=== PATIENT | male | born 1960 ===

== ENCOUNTER 2018-09-10 06:12 | Inpatient (IN) ==
[~2018-09-10 06:12] MED LIST: Bacitracin 50,000 UNIT, Polymyxin B Sulfate 500,000 UNIT, Sodium Chloride IRRigation 1,... IR ONE
[2018-09-10] MEDS ORDERED: Clindamycin 900 MG/50 ML 900 MG/50 ML IV.SOLN IVPB ONE (06:29)
[2018-09-10] MEDS ORDERED: Ringers Solution, Lactated 1,000 ML IVC SCH (06:30)
[2018-09-10] MEDS ORDERED: *HR* FentaNYL (PF) 100 MCG/2 ML VIAL ONE (06:58)
[2018-09-10] MEDS ORDERED: *HR* Propofol 200 MG/20 ML VIAL IVP ONE ×2 (06:58→11:36)
[2018-09-10] MEDS ORDERED: *HR* Midazolam HCl 2 MG/2 ML VIAL ONE (06:58)
[2018-09-10] MEDS ORDERED: *HR* Remifentanil 1 MG VIAL IVP ONE (06:59)
[2018-09-10] MEDS ORDERED: *HR* Succinylcholine 200 MG/10 ML VIAL IVP ONE (07:02)
[2018-09-10] MEDS ORDERED: Lidocaine -MPF 4% 5 ML AMPUL ONE (07:02)
[2018-09-10] MEDS ORDERED: Lidocaine -MPF 2% 2 ML VIAL ONE (07:02)
[2018-09-10] MEDS ORDERED: Ondansetron 4 MG/2 ML VIAL ONE (07:02)
[2018-09-10] MEDS ORDERED: *HR* Phenylephrine 10 MG/ML VIAL ONE (07:06)
--- NOTE | 2018-09-10 07:45 | History & Physical Report ---
Date of Encounter: 09/10/18 Time of Encounter: 07:44 24 Hour HP Update - Instructions Instructions: If the History and Physical is less than 30 days old and was completed prior to A.M. admission and or procedure and has NOT been updated on calendar day of procedure please complete this update prior to performing procedure. - Update Patient reports changes in Medical Condition: No Changes in examination, assessment, or condition: No Changes in Medication: No Preop tests/diagnostics Reviewed: Yes Pre-Op MRSA Screen: Negative Surgery Remains Indicated: Yes Consent for Planned Operative Procedure(s) Verified: Yes - Pre-Operative Checklist Preoperative Checklist Indicated: No Prophylactic Antibiotic Ordered: Yes Home Medications Include Beta Dong: No Beta Dong Taken Today (Day of Surgery): No Beta Dong Taken Yesterday (Day Prior to Surgery): No Is VTE Prophylaxis Indicated?: Yes
--- NOTE | 2018-09-10 07:59 | Anesthesia Evaluation PreOp ---
Date of Encounter: 09/10/18 Time of Encounter: 07:57 - Past History Planned Operation: PLIF L3-L5 Cardiac History: HTN Pulmonary History: Denies Any Significant HX INSOLE CHANNELER History: Denies Any Significant HX Other Medical History: Other (CML S/P leukemia, anxiety) Anesthesia History: No Prior Anesthetic Complications, Past Anesthesia Alcohol Use: occasionally Drug use: none Medications and Allergies DULoxetine [Cymbalta] 60 mg PO DAILY 05/01/17 [History] Brexpiprazole [Rexulti] 2 mg PO DAILY 12/19/17 [History] Dasatinib [Sprycel] 80 mg PO DAILY #90 tablet 06/26/18 [Rx] Lisinopril-HCTZ 20-12.5 [Prinzide 20-12.5] 1 tab PO QAM 09/10/18 [History] Loratadine/Pseudoephedrine [[facility] Allergy Relief-D12 Tablet] 1 tab PO DAILY PRN 09/10/18 [History] Meloxicam 15 mg PO QAM 09/10/18 [History] Oxycodone HCl/Acetaminophen [Percocet 7.5-325 mg Tablet] 1 tab PO Q6H PRN 09/10/18 [History] clonazePAM [Clonazepam] 0.5 mg PO BID 09/10/18 [History] Allergy/AdvReac Type Severity Reaction Status Date / Time Penicillins [PCN] AdvReac Rash Verified 09/10/18 07:24 - Meds/Allergy Pre-op Review Medications Reviewed: Yes Allergies Reviewed: Yes Beta Blockers on Current Med List: No Anesthesia Results - Labs Laboratory Tests 09/08/18 09/08/18 09/08/18 14:52 14:52 14:52 WBC 3.9 L Hgb 12.6 L Hct 38.5 Plt Count 165 PT 11.1 INR 1.0 APTT 35.4 Sodium 139 Potassium 4.0 BUN 22 H Creatinine 1.23 - Imaging EKG: report reviewed (12/19/2017 SINUS RHYTHM POSSIBLE LEFT ATRIAL ENLARGEMENT) Additional studies: 12/25/2017 Echo Impressions: LVEF 60-65%. Normal LV chamber size, wall thickness and function. Mild left ventricular diastolic dysfunction. Normal right ventricular structure and function. Mild tricuspid regurgitation. Mild pulmonary hypertension. Anesthesia Exam O2 Sat Height 1.6 m Height 1.6 m Weight 70.76 kg Weight 70.76 kg O2 Sat by Pulse Oximetry 94 Vital Signs Temp Pulse Resp BP Pulse Ox 98.8 F 99 18 118/68 94 09/10/18 06:47 09/10/18 06:47 09/10/18 06:47 09/10/18 06:47 09/10/18 06:47 Height: 5'3'' Weight: 156 lbs NPO (# of Hours): 8 Pain Scale: 0 Pain Scale Used: Numeric (1 - 10) - HEENT Pupil (Motor): EOMI Mallampati: III Teeth: Normal Oral Opening: Greater than 3 - INSOLE CHANNELER LOC: Oriented INSOLE CHANNELER Motor: Normal RUE, Normal LUE, Normal RLE, Normal LLE, Normal Face INSOLE CHANNELER Sensory: Normal: RUE, LUE, RLE, LLE, Face - Cardiac Rhythm: Regular Murmur: None - Pulmonary Breath Sounds: bilateral Rhonchi Respiratory Effort: Symmetrical Anesthesia Assess/Plan ASA Score: 3 Level of consciousness: Cooperative, Oriented, Tranquil Anesthetic Plan: General Monitoring Plan: Standard Monitors Recovery Plan: PACU
[2018-09-10] MEDS ORDERED: Acetaminophen IV 1,000 MG/100 ML INFUS..BTL ONE (08:09)
[2018-09-10] MEDS ORDERED: Albuterol 2.5 MG/3 ML NEBULIZER ONE (08:10)
[2018-09-10] MEDS ORDERED: Dexamethasone 4 MG/ML VIAL ONE (09:17)
[2018-09-10] MEDS ORDERED: *HR* Rocuronium Bromide 50 MG/5 ML VIAL ONE (09:31)
[2018-09-10] MEDS ORDERED: *HR* HYDROMORPHONE 2 MG/ML VIAL ONE (11:19)
--- NOTE | 2018-09-10 12:52 | Orthopedic Operative Note ---
Date of procedure: 09/10/18 Pre-op diagnosis: Spondylolisthesis, lumbar stenosis, lumbar radiculopathy Post-op diagnosis: same Operation/Findings: Posterior lumbar interbody fusion L3-L5: The patient successfully underwent general endotracheal anesthesia. The patient was given antibiotics prior to the start of the procedure. Compression boots and stockings were used for deep vein thrombosis prophylaxis. A Sawyer catheter was placed. Leads for neuro monitoring were placed on the upper and lower extremities. This included the cranium. The neuro monitoring personnel confirmed there were satisfactory readings prior to the start of the procedure. The patient was turned prone on the Elias table. The back was prepped and draped in the usual sterile fashion. An incision was was marked and centered over the involved L3-L5 levels in the mid line. The incision was deepened through the lumbar fascia. Bovie cautery and Young elevators were used to reflect the paraspinal musculature at the lateral extent of the transverse processes of the involved L3-L5 levels. Linda clamps were placed over the L4 and L5 spinous processes. An intraoperative lateral fluorograph was obtained. A conversation was held between the surgeon and radiologist and both confirmed we had the correct operative levels. We then placed pedicle screws in standard fashion with the aid of fluoroscopy and anatomic landmarks. Briefly a starter awl was used. A gearshift was subsequently used to enter the facilities flight check pilot hole via a transpedicular route into the vertebral body. The facilities flight check pilot hole was tapped with an undersized instrument, and subsequently six 6.5 x 45 mm pedicle screws were placed bilaterally at the indicated L3, L4, and L5 levels. The screws were tested with the aid of the neurologic monitoring staff via pedicle screw stimulation. All reading suggested there was no significant cortical wall breech. The screws were also evaluated fluoro- graphically and appeared to be in satisfactory position. We then turned our attention to the decompression portion of the procedure. We removed the supraspinous and interspinous ligaments and subsequently the insertion of the ligamentum flavum on the undersurface of the proximal L4 lamina was dislodged with a curette. We then removed the ligamentum flavum as well as undercut the L4-L5 facets at this L4-L5 level to decompress the lateral recesses. We also performed a laminectomy. After the decompression which was over and above that which was required to place the interbody graft, the foramen and traversing roots at this level were found to be free and patent. We also took part of the medial facets in order to aid in the decompression. We moved proximally to the L3-4 level and again removed supraspinous and interspinous ligaments, removed hypertrophied ligamentum flavum, and undercut the L3-4 facets and did partial medial facetectomies. We also did a partial L3 laminectomy. We then protected the neural elements including the thecal sac and traversing nerve root on the right at L4-5 with a dural retractor. We made an annulotomy into the L4-5 disc space and then removed entire disc material using Pituitary instruments. We trialed various size grafts after the endplates were prepared for graft insertion. A 10 x 26 enter body graft fit well within the L4-L5 disc space. We obtained some bone from the right posterior superior iliac spine through us a separate incision and combined with this with the bone which we had saved from the laminectomy portion of the procedure. This autograft bone was first placed in the anterior portion of the L4-L5 disc space and additional bone was placed within the interbody graft spacer. We then placed the interbody graft spacer obliquely across the L4-L5 disc space towards the midline while protecting the neural elements with a root retractor. When the graft was found to be in satisfactory position the bowling ball engraver was removed. We then performed an identical interbody graft placement procedure at L3-4. This included protecting the neural elements with a dural retractor, making annulotomy into the L3-4 disc space, removing entire disc material, prepared the endplates for graft insertion. Trialing and subsequently placing a 10 x 26 mm interbody graft spacer obliquely across the L3-4 disc space that was packed with autograft bone. We then copiously irrigated the wound. We then decorticated the L3, L4, and L5 transverse processes as well as the L3-4 and L4-5 facet joints of the involved L3-L5 levels to aid in the posterolateral fusion. We placed autograft bone in the lateral gutters over these regions. We then placed rods within the screw h ruddy of the involved L3-L5 levels and first locked the distal screws and then subsequently locked the proximal screws so as to improve and reduce the spondylolisthesis previously seen. We then closed the wound in layers with 1 Vicryl for the fascia, 2-0 Vicryl. Subcutaneous tissue, and Dermabond was used for skin closure. Sterile dressings were placed over the wound. The patient was turned supine on a hospital bed and extubated. All sponge instruments and needle counts were correct at the end of the procedure. The patient tolerated the procedure well without complications. Anesthesia: GETA Surgeon: Deejay Loernzana Jr Was there an cafeteria assistant present: No Estimated blood loss (cc): 200 Specimen: None Condition: stable Disposition: PACU
[2018-09-10] MEDS ORDERED: *HR* OxyCODONE Immed Rel 5 MG TABLET PO ONE (13:12)
--- NOTE | 2018-09-10 13:34 | Anesthesia Evaluation Post Op ---
Date of Encounter: 09/10/18 Time of Encounter: 13:34 - Vital Signs Vital Signs: Vital Signs/O2 Sat, Most Current Temp Pulse Resp BP Pulse Ox 99.6 F 110 18 102/63 96 09/10/18 12:50 09/10/18 13:30 09/10/18 13:30 09/10/18 13:30 09/10/18 13:30 - Lungs Lungs: Clear Ascult./Percussion - Airway Airway: Non-obstructed - Cardiovascular Regular Rate - Mental Status Mental Status: Alert & Oriented, Answers Appropriately - Pain Pain Scale: 5 Pain Scale used: Numeric (1 - 10) - Nausea Vomiting Nausea Vomiting: Not Present - Hydration Hydration: NPO, Sawyer catheter - Discharge PostOp Status: Transfer Patient to floor
[2018-09-10] MEDS ORDERED: Ondansetron 4 MG/2 ML VIAL IVP PRN (13:57)
[2018-09-10] MEDS ORDERED: Loratadine/Pseudophed (12 HR) 1 EACH TABLET PO PRN (13:57)
[2018-09-10] MEDS ORDERED: Naloxone 0.4 MG/ML INJ IVP PRN (13:57)
[2018-09-10] MEDS: *HR* HYDROcodone/Acet 5/325 mg TABLET PO PRN (15:24)
[2018-09-10] MEDS: Ringers Solution, Lactated 1,000 ML IVC SCH (16:43)
[2018-09-10] MEDS: *HR* OxyCODONE Immed Rel 5 MG TABLET PO PRN ×2 (17:52→23:27)
[2018-09-10] MEDS: Clindamycin 600 MG/50 ML 600 MG/50 ML IV.SOLN IVPB SCH (23:28)
[2018-09-10] MEDS: clonazePAM 0.5 MG TABLET PO SCH (23:28)
[2018-09-11] MEDS: Benzonatate 100 MG CAPSULE PO PRN ×2 (02:45→22:43)
[2018-09-11] MEDS: Albuterol 2.5 MG/3 ML NEBULIZER IH PRN ×2 (03:27→20:38)
[2018-09-11] MEDS: *HR* OxyCODONE Immed Rel 5 MG TABLET PO PRN ×4 (03:54→17:55)
[2018-09-11] MEDS: Acetaminophen 325 MG TABLET PO PRN ×2 (03:54→15:20)
[2018-09-11] MEDS: Ringers Solution, Lactated 1,000 ML IVC SCH (05:52)
--- NOTE | 2018-09-11 08:41 | Orthopedics Progress Note ---
Date of Encounter: 09/11/18 Time of Encounter: 10:55 - Assessment and Plan (1) Spondylisthesis Current Visit: Yes Status: Chronic Qualifiers: Spinal region: unspecified Qualified Code(s): M43.10 - Spondylolisthesis, site unspecified (2) Lumbar stenosis Current Visit: Yes Status: Chronic Qualifiers: Neurogenic claudication status: unspecified Qualified Code(s): M48.061 - Spinal stenosis, lumbar region without neurogenic claudication (3) Lumbar radiculopathy Current Visit: Yes Status: Chronic (4) Status post lumbar spinal fusion Current Visit: Yes Status: Acute (5) Fever Current Visit: Yes Status: Acute Qualifiers: Fever type: unspecified Qualified Code(s): R50.9 - Fever, unspecified (6) Tachycardia Current Visit: Yes Status: Acute (7) Cough Current Visit: Yes Status: Acute Subjective Principal diagnosis: s/p PLIF Interval history: POD#1 Posterior lumbar interbody fusion L3-L5 [Spondylolisthesis, lumbar stenosis, lumbar radiculopathy] 09/10/18 The patient is complains of cough. States it has been going on for a little while however has now become much worse and feels unwell. Patient febrile with tachycardia. Dressing is clean dry and intact. Neurovascularly intact with regard to bilateral lower extremities. Fires all upper and lower extremity motor groups. Assessment concern for respiratory infection Discussed with Dr. Lorenzana Chest xray, labwork Consult to hospitalist Continue to mobilize with therapy Continue analgesics Continue postoperative care Objective Vital signs: Vital Signs Temp Pulse Resp BP Pulse Ox 09/11/18 08:02 98.5 F 09/11/18 06:25 110 16 119/57 96 09/11/18 05:51 101.1 F H 09/11/18 03:53 116/55 09/11/18 03:28 101.4 F H 119 15 107/54 90 09/11/18 03:27 16 90 09/10/18 22:56 99.8 F H 106 15 124/70 90 09/10/18 19:35 98.8 F 104 15 155/77 94 09/10/18 13:40 108 16 106/65 99 09/10/18 13:30 110 18 102/63 96 09/10/18 13:20 112 18 98/62 94 09/10/18 13:00 120 18 104/63 100 09/10/18 12:50 99.6 F 124 22 115/64 98 Intake and Output 09/10/18 09/11/18 09/11/18 23:59 07:59 15:59 Intake Total 1050 / 1050 Output Total 600 / 1140 600 / 600 Balance -600 / -1090 450 / 450 Intake: IV Fluids 1050 / 1050 Lactated Ringers 1,000 ML @ 100 1000 / 1000 mls/hr IVC .Q10H YURY Rx#: [id number] Cleocin Premix 600 MG/50 ML 600 50 / 50 mg In 50 ml @ 50 mls/hr IVPB Q8HR YURY Rx#:[id number] Output: Catheter 600 / 600 600 / 600 Other: Weight 70.7 kg Patient Weight 09/11/18 23:59 Weight 70.7 kg - Labs CBC & BMP: 09/11/18 11:20 09/11/18 12:27 Consult Discharge Plan - Plan Referrals: Chrsitian Love DO [Primary Care Provider] - Prescriptions: Docusate Sodium [Colace] 100 mg PO BID 5 Days #10 capsule Acetaminophen [Non-Aspirin Extra Strength] 500 mg PO Q6H PRN 7 Days #28 tablet PRN Reason: Mild To Moderate Pain OxyCODONE Immed Rel [Roxicodone 5 MG] 5 mg PO Q6HR PRN 5 Days #20 tablet PRN Reason: Severe Pain
[2018-09-11] MEDS ORDERED: Lisinopril-HCTZ 20-12.5mg TABLET PO SCH (09:00)
[2018-09-11] MEDS ORDERED: (Brexpiprazole [Rexulti] 2 MG) PO SCH (09:00)
[2018-09-11] MEDS: Clindamycin 600 MG/50 ML 600 MG/50 ML IV.SOLN IVPB SCH (09:15)
[2018-09-11] MEDS: clonazePAM 0.5 MG TABLET PO SCH ×2 (09:15→22:36)
[2018-09-11] MEDS: DASATINIB PO SCH (09:16)
[2018-09-11 11:36] LABS: Basophils % 0.3 %; Eosinophils % 0.2 %; Hematocrit 28.6 % (37.5-50.1); Immature Granulocytes % 0.2 % (0-4); Lymphocytes # 0.5 K/mcL (0.6-4.6); Lymphocytes % 9.2 %; Mean Corpuscular HGB Conc 32.2 g/dL (31.6-35.5); Mean Corpuscular Hemoglobin 32.6 pg (28.0-33.3); Mean Corpuscular Volume 101.4 fL (83.0-100.0); Mean Platelet Volume 8.4 fL (9.4-12.4); Monocytes % 17.6 %; Neutrophils # 4.2 K/mcL (1.6-8.9); Platelet Count 139 K/mcL (140-400); Red Blood Count 2.82 M/mcL (4.19-5.50); Red Cell Distribution Width 13.2 % (11.5-14.5); Segmented Neutrophils % 72.5 %; White Blood Count 5.7 K/mcL (4.3-11.1)
[2018-09-11 11:40] LABS: Hemoglobin 9.2 g/dL (12.9-16.9)
--- NOTE | 2018-09-11 12:13 | Internal Medicine Consult Note ---
<Evelyn Acevedo - Last Filed: 09/11/18 14:01> Date of Encounter: 09/11/18 Time of Encounter: 13:33 - Assessment and Plan (1) Sepsis Current Visit: Yes Status: Acute Assessment and plan: fever, tachycardia. source of infection suspected secondary to community acquired pneumonia. CXR reviewed: showed bibasilar atalectasis vs. infiltrate. patient states he had symptoms of productive cough, congestion prior to arriving to hospital for surgery. thus, will treat for community acquired pneumonia and not hospital acquired. Plan: blood cultures x2 urine culture legionella, strep pneumo antigens pending ceftriaxone, azithromycin day 1 1L bolus with maintenance fluids. Qualifiers: Sepsis type: sepsis due to unspecified organism Qualified Code(s): A41.9 - Sepsis, unspecified organism (2) Community acquired pneumonia Current Visit: Yes Status: Acute Assessment and plan: plan as above Qualifiers: Laterality: unspecified laterality Qualified Code(s): J18.9 - Pneumonia, unspecified organism (3) Anemia Current Visit: Yes Status: Acute Assessment and plan: acute blood loss anemia secondary to surgery. MCV 101.4- will get anemia workup. Qualifiers: Anemia type: unspecified type Qualified Code(s): D64.9 - Anemia, unspecified (4) Hypertension Current Visit: Yes Status: Acute Assessment and plan: history of hypertension on lisnopril-HCTZ will hold for now in setting of sepsis/tachycardia. Qualifiers: Hypertension type: essential hypertension Qualified Code(s): I10 - Essential (primary) hypertension (5) Status post lumbar spinal fusion Current Visit: Yes Status: Acute Assessment and plan: s/p lumbar spinal fusion of L3-L5 on 09/[address] Lorenzana. (6) CML (chronic myelocytic leukemia) Current Visit: No Status: Acute Assessment and plan: Hx of CML, follows with Dr. Garcia. (7) DVT prophylaxis Current Visit: Yes Status: Acute Assessment and plan: EPCDs - Time Spent With Patient Total time spent is greater than 50% in coordination of care (as documented) at patient's floor/unit and/or counseling patient: Internal Medicine - CN: HPI - Data of Consult Patient: new to practice Consult date: 09/11/18 Requesting Physician: Deejay Lorenzana Jr MD - Consult Narrative Reason for consult: fever, tachycardia History of present illness: Mr. Coy is a 58 year old male with PMHx of CML, seasonal allergies, hypertension, depression, chronic pain. Patient was admitted yesterday on 09/10 for Posterior lumbar interbody fusion L3-L5. He states that during his admission, he was having upper respiratory symptoms with cough, congestion. After his surgery, patient was having repeated episodes of fever, tachycardia and hospitalist service was consulted for further management. He reports cough with yellow/white sputum production. He reports fevers, chills, and is diaphoretic as well. He denies nausea, vomiting, diarrhea. He denies any new problems today. Past Med Surg Social Fam HX - Past Medical History Medical history: cancer, hypertension Additional medical history: depression anxiety Psychiatric history: anxiety, depression - Past Surgical History Surgical History: herniorrhaphy, orthopedic, other - Social History Smoking Status: Former smoker Alcohol use: occasionally Drug use: none - Family History Mother Hx Family Cancer: Yes (Colon-brain) Father Hx Family Cancer: Yes (Colon) - Constitutional Constitutional: as per HPI - EENT Eyes: as per HPI Ears: as per HPI Nose, mouth and throat: as per HPI - Cardiovascular Cardiovascular ROS IM: as per HPI - Respiratory Respiratory: as per HPI - Gastrointestinal Gastrointestinal: as per HPI - Genitourinary Genitourinary ROS male: as per HPI - Musculoskeletal Musculoskeletal ROS IM: as per HPI - Integumentary Integumentary IM: as per HPI - Neurological Neurological ROS: as per HPI - Psychiatric Psychiatric: as per HPI Internal Medicine - CN: Meds DULoxetine [Cymbalta] 60 mg PO DAILY 05/01/17 [History] Brexpiprazole [Rexulti] 2 mg PO DAILY 12/19/17 [History] Dasatinib [Sprycel] 80 mg PO DAILY #90 tablet 06/26/18 [Rx] Lisinopril-HCTZ 20-12.5 [Prinzide 20-12.5] 1 tab PO QAM 09/10/18 [History] Loratadine/Pseudoephedrine [[facility] Allergy Relief-D12 Tablet] 1 tab PO DAILY PRN 09/10/18 [History] Meloxicam 15 mg PO QAM 09/10/18 [History] Oxycodone HCl/Acetaminophen [Percocet 7.5-325 mg Tablet] 1 tab PO Q6H PRN 09/10/18 [History] clonazePAM [Clonazepam] 0.5 mg PO BID 09/10/18 [History] Acetaminophen [Non-Aspirin Extra Strength] 500 mg PO Q6H PRN 7 Days #28 tablet 09/11/18 [Rx] Docusate Sodium [Colace] 100 mg PO BID 5 Days #10 capsule 09/11/18 [Rx] OxyCODONE Immed Rel [Roxicodone 5 MG] 5 mg PO Q6HR PRN 5 Days #20 tablet 09/11/18 [Rx] Allergy/AdvReac Type Severity Reaction Status Date / Time Penicillins [PCN] AdvReac Rash Verified 09/10/18 07:24 Hospitalist - CN: Exam - Constitutional Vitals: Temp Pulse Resp BP Pulse Ox 99.1 F 85 16 130/75 96 09/11/18 10:27 09/11/18 10:27 09/11/18 10:27 09/11/18 10:27 09/11/18 10:27 Exam: alert and oriented x3, pleasant, no acute distress. diaphoretic. - Head Head exam: Present: atraumatic, normocephalic - ENT ENT exam: Present: mucous membranes moist - Neck Neck exam general surgery: Present: supple, trachea midline - Respiratory Additional comments: rhoncherous breath sounds throughout in all lung mcgee. - Cardiovascular Cardiovascular exam IM: Present: +S1, +S2, tachycardia. Absent: distant heart sounds, gallop, systolic murmur - GI/Abdominal GI/Abdominal exam IM: Present: normal bowel sounds, soft. Absent: distended, tenderness - Extremities Exam Extremities exam IM: Absent: cyanotic, pedal edema - Neurological Exam Neurological exam: Present: alert, oriented X3, no focal deficits - Psychiatric Psychiatric exam: Present: normal affect, normal mood - Skin Skin exam IM: Absent: abrasion, cyanosis, diaphoretic Internal Medicine - CN: Reslt - Labs CBC & Chem 7: 09/11/18 11:20 09/11/18 12:27 Labs: Short CBC 09/11/18 Range/Units 11:20 WBC 5.7 (4.3-11.1) K/mcL Hgb 9.2 L D (12.9-16.9) g/dL Hct 28.6 L (37.5-50.1) % Plt Count 139 L (140-400) K/mcL Neutrophils # 4.2 (1.6-8.9) K/mcL - Impressions Impressions Fluoroscopy 09/10/18 08:55 IMPRESSION: Intraprocedural fluoroscopic spot images as above. See separate procedure report for more information. Postoperative lateral radiograph of the lumbar spine demonstrates posterior fusion changes from L3-L5, with laminectomies. D/ / 09/10/2018 12:51:57 Darryl Gunn MD / kerry Interpreting Provider: Darryl Gunn MD Lumbar Spine X-Ray 09/10/18 08:55 IMPRESSION: Intraprocedural fluoroscopic spot images as above. See separate procedure report for more information. Postoperative lateral radiograph of the lumbar spine demonstrates posterior fusion changes from L3-L5, with laminectomies. D/ / 09/10/2018 12:51:57 Darryl Gunn MD / kerry Interpreting Provider: Darryl Gunn MD Lumbar Spine X-Ray 09/10/18 08:55 IMPRESSION: Intraprocedural fluoroscopic spot images as above. See separate procedure report for more information. Postoperative lateral radiograph of the lumbar spine demonstrates posterior fusion changes from L3-L5, with laminectomies. D/ / 09/10/2018 12:51:57 Darryl Gunn MD / kerry Interpreting Provider: Darryl Gunn MD Chest X-Ray 09/11/18 08:26 IMPRESSION: Bibasilar atelectasis or infiltrate. D/ / Zina Busch MD / Zina Busch MD Interpreting Provider: Zina Busch MD Consult Discharge Plan - Plan Referrals: Christian Love DO [Primary Care Provider] - Prescriptions: Docusate Sodium [Colace] 100 mg PO BID 5 Days #10 capsule Acetaminophen [Non-Aspirin Extra Strength] 500 mg PO Q6H PRN 7 Days #28 tablet PRN Reason: Mild To Moderate Pain OxyCODONE Immed Rel [Roxicodone 5 MG] 5 mg PO Q6HR PRN 5 Days #20 tablet PRN Reason: Severe Pain <Li Taylor Latonia - Last Filed: 09/12/18 06:41> Date of Encounter: 09/11/18 - Time Spent With Patient Total time spent is greater than 50% in coordination of care (as documented) at patient's floor/unit and/or counseling patient: Internal Medicine - CN: HPI - Data of Consult Requesting Physician: Deejay Lorenzana Jr MD - Consult Narrative History of present illness: Mr. Coy is a 58 year old male Hospitalist - CN: Exam - Constitutional Vitals: Temp Pulse Resp BP Pulse Ox 99.6 F 98 17 94/56 94 09/12/18 03:22 09/12/18 03:22 09/12/18 03:22 09/12/18 03:22 09/12/18 03:22 Internal Medicine - CN: Reslt - Labs CBC & Chem 7: 09/12/18 05:30 09/12/18 05:30 Labs: Short CBC 09/11/18 09/12/18 Range/Units 11:20 05:30 WBC 5.7 5.9 (4.3-11.1) K/mcL Hgb 9.2 L D 8.4 L (12.9-16.9) g/dL Hct 28.6 L 25.5 L (37.5-50.1) % Plt Count 139 L 145 (140-400) K/mcL Neutrophils # 4.2 4.1 (1.6-8.9) K/mcL BMP 09/11/18 09/12/18 12:27 05:30 Sodium 136 138 Potassium 3.8 3.7 Chloride 102 102 Carbon Dioxide 27 27 BUN 16 19 Creatinine 1.04 1.26 Glucose 109 H 109 H Calcium 8.4 L 8.0 L Cardiac Enzymes 09/11/18 Range/Units 12:27 Troponin I < 0.03 (< 0.04) ng/mL Liver Function 09/11/18 Range/Units 12:27 Total Bilirubin 0.6 (0.3-1.0) mg/dL AST 47 H (13-39) Units/L ALT 26 (7-52) Units/L Alkaline Phosphatase 41 (34-104) Units/L Albumin 3.5 (3.5-5.7) g/dL - Impressions Impressions Fluoroscopy 09/10/18 08:55 IMPRESSION: Intraprocedural fluoroscopic spot images as above. See separate procedure report for more information. Postoperative lateral radiograph of the lumbar spine demonstrates posterior fusion changes from L3-L5, with laminectomies. D/ / 09/10/2018 12:51:57 Darryl Gunn MD / kerry Interpreting Provider: Darryl Gunn MD Lumbar Spine X-Ray 09/10/18 08:55 IMPRESSION: Intraprocedural fluoroscopic spot images as above. See separate procedure report for more information. Postoperative lateral radiograph of the lumbar spine demonstrates posterior fusion changes from L3-L5, with laminectomies. D/ / 09/10/2018 12:51:57 Darryl Gunn MD / kerry Interpreting Provider: Darryl Gunn MD Lumbar Spine X-Ray 09/10/18 08:55 IMPRESSION: Intraprocedural fluoroscopic spot images as above. See separate procedure report for more information. Postoperative lateral radiograph of the lumbar spine demonstrates posterior fusion changes from L3-L5, with laminectomies. D/ / 09/10/2018 12:51:57 Darryl Gunn MD / kerry Interpreting Provider: Darryl Gunn MD Chest X-Ray 09/11/18 08:26 IMPRESSION: Bibasilar atelectasis or infiltrate. D/ / Zina Busch MD / Zina Busch MD Interpreting Provider: Zina Busch MD - Attending Attestation I performed a history and physical examination of the patient and discussed his management with the resident. I reviewed the residents note and agree with the documented findings and plan of care.
[2018-09-11 13:04] LABS: % Iron Saturation 6 % (20-55); Iron 15 mcg/dL (65-175); Transferrin 184 mg/dL (203-362)
[2018-09-11 13:15] LABS: Alanine Aminotransferase 26 Units/L (7-52); Albumin 3.5 g/dL (3.5-5.7); Albumin/Globulin Ratio 1.6 (1.1-2.2); Alkaline Phosphatase 41 Units/L (34-104); Aspartate Amino Transferase 47 Units/L (13-39); BUN/Creatinine Ratio 15 (6-26); Bilirubin,Total 0.6 mg/dL (0.3-1.0); Blood Urea Nitrogen 16 mg/dL (6-20); Calcium 8.4 mg/dL (8.6-10.3); Carbon Dioxide 27 mEq/L (23-29); Chloride 102 mEq/L (98-107); Globulin 2.2 g/dL (2.4-3.5); Glucose 109 mg/dL (70-105); Osmolality,Calculated 284 (280-300); Potassium 3.8 mEq/L (3.5-5.1); Sodium 136 mEq/L (136-145); Total Protein 5.7 g/dL (6.4-8.9); eGFR For African Americans > 60 (> 60); eGFR For Non-African Americans > 60 (> 60)
[2018-09-11 13:22] LABS: Ferritin 147 ng/mL (20-250)
[2018-09-11] MEDS ORDERED: diazePAM 5 MG TABLET PO PRN (13:25)
[2018-09-11 13:27] LABS: Folate 13.3 ng/mL (3.0-16.0)
[2018-09-11] MEDS ORDERED: Ringers Solution, Lactated 1,000 ML IVC ONE (14:10)
[2018-09-11] MEDS: Gabapentin 300 MG CAPSULE PO SCH ×2 (15:11→22:25)
[2018-09-11] MEDS: Azithromycin 500 MG in D5% in Water 250 ML IVPB SCH (15:12)
[2018-09-11] MEDS: cefTRIAXone 2,000 MG in 0.9 % Sodium Chloride Mini Bag 100 ML IVPB SCH (16:21)
[2018-09-11] MEDS: *HR* HYDROcodone/Acet 5/325 mg TABLET PO PRN (22:43)
[2018-09-12] MEDS: Ringers Solution, Lactated 1,000 ML IVC SCH (00:50)
[2018-09-12] MEDS: Acetaminophen 325 MG TABLET PO PRN ×2 (00:51→21:38)
[2018-09-12 05:52] LABS: Basophils % 0.7 %; Eosinophils # 0.1 K/mcL (0.0-0.6); Eosinophils % 1.7 %; Hematocrit 25.5 % (37.5-50.1); Hemoglobin 8.4 g/dL (12.9-16.9); Immature Granulocytes % 0.5 % (0-4); Lymphocytes # 0.8 K/mcL (0.6-4.6); Lymphocytes % 12.9 %; Mean Corpuscular HGB Conc 32.9 g/dL (31.6-35.5); Mean Corpuscular Hemoglobin 33.5 pg (28.0-33.3); Mean Corpuscular Volume 101.6 fL (83.0-100.0); Mean Platelet Volume 8.7 fL (9.4-12.4); Monocytes # 0.9 K/mcL (0.0-1.3); Monocytes % 15.3 %; Neutrophils # 4.1 K/mcL (1.6-8.9); Platelet Count 145 K/mcL (140-400); Red Blood Count 2.51 M/mcL (4.19-5.50); Red Cell Distribution Width 13.4 % (11.5-14.5); Segmented Neutrophils % 68.9 %; White Blood Count 5.9 K/mcL (4.3-11.1)
[2018-09-12 06:14] LABS: BUN/Creatinine Ratio 15 (6-26); Blood Urea Nitrogen 19 mg/dL (6-20); Carbon Dioxide 27 mEq/L (23-29); Chloride 102 mEq/L (98-107); Glucose 109 mg/dL (70-105); Osmolality,Calculated 289 (280-300); Potassium 3.7 mEq/L (3.5-5.1); Sodium 138 mEq/L (136-145); eGFR For African Americans > 60 (> 60); eGFR For Non-African Americans 59 (> 60)
[2018-09-12] MEDS: clonazePAM 0.5 MG TABLET PO SCH ×2 (08:07→21:31)
[2018-09-12] MEDS: (Brexpiprazole [Rexulti] 2 MG) PO SCH (08:08)
[2018-09-12] MEDS: DASATINIB PO SCH (08:08)
[2018-09-12] MEDS: Gabapentin 300 MG CAPSULE PO SCH ×3 (08:08→21:32)
[2018-09-12] MEDS: *HR* HYDROcodone/Acet 5/325 mg TABLET PO PRN ×3 (08:12→21:42)
--- NOTE | 2018-09-12 11:41 | Internal Med Progress Note ---
Hospitalist Progress Note - Encounter Date of Encounter: 09/12/18 Time of Encounter: 09:45 - Subjective Interval History: Patient doing well this morning. Working with physical therapy. Continues to have significant pain in his back. Also complains of cough and shortness of breath. Continues to have intermittent episodes of fever. MAXIMUM TEMPERATURE of 101.7F - Exam Vitals: Temp Pulse Resp BP Pulse Ox 100.0 F H 110 16 109/62 98 09/12/18 10:09/12/18 10:09/12/18 10:09/12/18 10:09/12/18 10:09 Exam: General: Patient is alert, no acute distress, oriented x 3 Respiratory: Decreased breath sounds at both bases Cardiovascular: Regular rate and rhythm. s1 and s2 normal No clicks, rubs, gallops, or murmurs. No pedal edema Abdomen: Abdomen is soft, nontender. Bowel sounds are present Musculoskeletal: Spontaneously moving all extremities Skin: warm, dry, intact. Neuro: Alert oriented x 3 normal cranial nerves, no focal deficits - Assessment and Plan (1) Sepsis Current Visit: Yes Status: Acute (2) Community acquired pneumonia Current Visit: Yes Status: Acute (3) Hypertension Current Visit: Yes Status: Acute (4) Status post lumbar spinal fusion Current Visit: Yes Status: Acute (5) Tachycardia Current Visit: Yes Status: Acute (6) CML (chronic myelocytic leukemia) Current Visit: No Status: Acute (7) Anemia Current Visit: Yes Status: Acute DVT Prophylaxis: On SCDs - Summary of Assessment and Plan Summary of Assessment and Plan: Sepsis from possible pneumonia: Patient on ceftriaxone and azithromycin. Continues to have fevers. But WBC count is normal. Legionella and streptococcal antigen panels have been negative. Urine culture and blood cultures are so far negative. We will follow results. Continue current antibiotics. No leukocytosis. Status post-posterior lumbar interbody fusion L3-L5: Continue supportive care. Pain control. Physical therapy. Essential hypertension: Blood pressure is well controlled. Iron deficiency anemia: Started on iron supplements. Will monitor hemoglobin levels. - Time Spent with Patient Total time spent is greater than 50% in coordination of care (as documented) at patient's floor/unit and/or counseling patient: Internal Medicine: Result - Labs CBC & Chem 7: 09/12/18 05:30 09/12/18 05:30 Labs: Short CBC 09/11/18 09/12/18 Range/Units 11:20 05:30 WBC 5.7 5.9 (4.3-11.1) K/mcL Hgb 9.2 L D 8.4 L (12.9-16.9) g/dL Hct 28.6 L 25.5 L (37.5-50.1) % Plt Count 139 L 145 (140-400) K/mcL Neutrophils # 4.2 4.1 (1.6-8.9) K/mcL BMP 09/11/18 09/12/18 12:27 05:30 Sodium 136 138 Potassium 3.8 3.7 Chloride 102 102 Carbon Dioxide 27 27 BUN 16 19 Creatinine 1.04 1.26 Glucose 109 H 109 H Calcium 8.4 L 8.0 L Cardiac Enzymes 09/11/18 Range/Units 12:27 Troponin I < 0.03 (< 0.04) ng/mL Liver Function 09/11/18 Range/Units 12:27 Total Bilirubin 0.6 (0.3-1.0) mg/dL AST 47 H (13-39) Units/L ALT 26 (7-52) Units/L Alkaline Phosphatase 41 (34-104) Units/L Albumin 3.5 (3.5-5.7) g/dL - Impressions Impressions Fluoroscopy 09/10/18 08:55 IMPRESSION: Intraprocedural fluoroscopic spot images as above. See separate procedure report for more information. Postoperative lateral radiograph of the lumbar spine demonstrates posterior fusion changes from L3-L5, with laminectomies. D/ / 09/10/2018 12:51:57 Darryl Gunn MD / kerry Interpreting Provider: Darryl Gunn MD Lumbar Spine X-Ray 09/10/18 08:55 IMPRESSION: Intraprocedural fluoroscopic spot images as above. See separate procedure report for more information. Postoperative lateral radiograph of the lumbar spine demonstrates posterior fusion changes from L3-L5, with laminectomies. D/ / 09/10/2018 12:51:57 Darryl Gunn MD / kerry Interpreting Provider: Darryl Gunn MD Lumbar Spine X-Ray 09/10/18 08:55 IMPRESSION: Intraprocedural fluoroscopic spot images as above. See separate procedure report for more information. Postoperative lateral radiograph of the lumbar spine demonstrates posterior fusion changes from L3-L5, with laminectomies. D/ / 09/10/2018 12:51:57 Darryl Gunn MD / kerry Interpreting Provider: Darryl Gunn MD Lumbar Spine X-Ray 09/12/18 10:00 IMPRESSION: Intact postsurgical hardware following posterior spinal fusion and discectomy as well as laminectomy. The hardware appears intact. No fracture or acute hardware complication. D/ / Galen Powers MD / Galen Powers MD Interpreting Provider: Galen Powers MD Consult Discharge Plan - Plan Referrals: Christian Love DO [Primary Care Provider] - Prescriptions: Docusate Sodium [Colace] 100 mg PO BID 5 Days #10 capsule Acetaminophen [Non-Aspirin Extra Strength] 500 mg PO Q6H PRN 7 Days #28 tablet PRN Reason: Mild To Moderate Pain OxyCODONE Immed Rel [Roxicodone 5 MG] 5 mg PO Q6HR PRN 5 Days #20 tablet PRN Reason: Severe Pain (1) Sepsis Qualifiers: Sepsis type: sepsis due to unspecified organism Qualified Code(s): A41.9 - Sepsis, unspecified organism (2) Community acquired pneumonia Qualifiers: Laterality: unspecified laterality Qualified Code(s): J18.9 - Pneumonia, unspecified organism (3) Hypertension Qualifiers: Hypertension type: essential hypertension Qualified Code(s): I10 - Essential (primary) hypertension (7) Anemia Qualifiers: Anemia type: unspecified type Qualified Code(s): D64.9 - Anemia, unspecified
[2018-09-12] MEDS ORDERED: MOM Conc 10 ML UD.LIQ PO PRN (11:44)
[2018-09-12] MEDS: Ascorbic Acid 500 MG TABLET PO SCH ×2 (13:59→21:31)
[2018-09-12] MEDS: Benzonatate 100 MG CAPSULE PO PRN (13:59)
[2018-09-12] MEDS: Azithromycin 500 MG in D5% in Water 250 ML IVPB SCH (13:59)
[2018-09-12] MEDS: cefTRIAXone 2,000 MG in 0.9 % Sodium Chloride Mini Bag 100 ML IVPB SCH (17:08)
--- NOTE | 2018-09-12 17:16 | Electrocardiograph Report ---
[place] [email or web address] Test Date: 2018-09-11 Pat Name: Terrence Coy Department: 114 Room: [facility] Gender: M [employer]: : 1960 Requested By: Estelle Alberto Order Number: [id number] Reading MD: Stefano Benitez Measurements Intervals [place] Rate: 102 P: 69 NC: 141 QRS: 48 QRSD: 84 T: 79 QT: 309 QTc: 368 Interpretive Statements SINUS TACHYCARDIA NONSPECIFIC ST & T-WAVE ABNORMALITY ABNORMAL RHYTHM ECG Electronically Signed On 09-12-2018 17:14:25 EDT by Stefano Benitez
[2018-09-13 01:47] LABS: Eosinophils # 0.2 K/mcL (0.0-0.6); Eosinophils % 3.5 %; Hematocrit 23.8 % (37.5-50.1); Hemoglobin 7.8 g/dL (12.9-16.9); Immature Granulocytes % 0.6 % (0-4); Lymphocytes # 0.5 K/mcL (0.6-4.6); Lymphocytes % 9.9 %; Mean Corpuscular HGB Conc 32.8 g/dL (31.6-35.5); Mean Corpuscular Hemoglobin 33.8 pg (28.0-33.3); Mean Platelet Volume 8.5 fL (9.4-12.4); Monocytes # 0.6 K/mcL (0.0-1.3); Monocytes % 12.1 %; Neutrophils # 3.8 K/mcL (1.6-8.9); Platelet Count 152 K/mcL (140-400); Red Blood Count 2.31 M/mcL (4.19-5.50); Red Cell Distribution Width 13.2 % (11.5-14.5); Segmented Neutrophils % 73.9 %; White Blood Count 5.1 K/mcL (4.3-11.1)
[2018-09-13 02:05] LABS: BUN/Creatinine Ratio 14 (6-26); Blood Urea Nitrogen 17 mg/dL (6-20); Calcium 7.8 mg/dL (8.6-10.3); Carbon Dioxide 26 mEq/L (23-29); Chloride 103 mEq/L (98-107); Glucose 153 mg/dL (70-105); Osmolality,Calculated 291 (280-300); Potassium 3.4 mEq/L (3.5-5.1); Sodium 138 mEq/L (136-145); eGFR For African Americans > 60 (> 60); eGFR For Non-African Americans > 60 (> 60)
[2018-09-13] MEDS: *HR* HYDROcodone/Acet 5/325 mg TABLET PO PRN ×2 (06:25→13:31)
--- NOTE | 2018-09-13 08:01 | Orthopedics Progress Note ---
Date of Encounter: 09/12/18 Time of Encounter: 08:30 - Assessment and Plan (1) Spondylisthesis Current Visit: Yes Status: Chronic Qualifiers: Spinal region: unspecified Qualified Code(s): M43.10 - Spondylolisthesis, site unspecified (2) Lumbar stenosis Current Visit: Yes Status: Chronic Qualifiers: Neurogenic claudication status: unspecified Qualified Code(s): M48.061 - Spinal stenosis, lumbar region without neurogenic claudication (3) Lumbar radiculopathy Current Visit: Yes Status: Chronic (4) Status post lumbar spinal fusion Current Visit: Yes Status: Acute (5) Fever Current Visit: Yes Status: Acute Qualifiers: Fever type: unspecified Qualified Code(s): R50.9 - Fever, unspecified (6) Cough Current Visit: Yes Status: Acute (7) Anemia Current Visit: Yes Status: Acute Qualifiers: Anemia type: unspecified type Qualified Code(s): D64.9 - Anemia, unspecified (8) Community acquired pneumonia Current Visit: Yes Status: Acute Qualifiers: Laterality: unspecified laterality Qualified Code(s): J18.9 - Pneumonia, unspecified organism Subjective Principal diagnosis: s/p PLIF Interval history: POD#2 Posterior lumbar interbody fusion L3-L5 [Spondylolisthesis, lumbar stenosis, lumbar radiculopathy] 09/10/18 The patient continues to c/o cough. States he feels better than yesterday, but continues to feel weak. States he does not feel he is ready to go home today or even tomorrow. Patient febrile with tachycardia. Dressing is clean dry and intact. Neurovascularly intact with regard to bilateral lower extremities. Fires all upper and lower extremity motor groups. Discussed with Dr. Lorenzana Consult to hospitalist POD#1 - treatment for community acquired pneumonia initiated. Input much appreciated. Continue to mobilize with therapy Continue analgesics XRays reviewed: XR/XR lumbar spine 2-3V IMPRESSION: Intact postsurgical hardware following posterior spinal fusion and discectomy as well as laminectomy. The hardware appears intact. No fracture or acute hardware complication. D/ / Galen Powers MD / Galen Powers MD Anemia addressed - will initiate Iron with Vitamin C Continue postoperative care - anticipate possible discharge 09/13 - will likely need continued PO antibiotic therapy and Iron supplementation upon discharge Objective Vital signs: Vital Signs Temp Pulse Resp BP Pulse Ox 09/13/18 05:35 99.0 F 95 18 104/70 95 09/13/18 03:40 98.3 F 89 18 122/56 96 09/12/18 23:58 99.5 F 119 20 129/64 93 09/12/18 19:21 99.8 F H 118 18 154/80 95 09/12/18 17:21 99.6 F 101 16 121/66 96 09/12/18 14:08 99.3 F 104 16 107/68 96 09/12/18 10:09 100.0 F H 110 16 109/62 98 Intake and Output 09/12/18 09/12/18 09/13/18 15:59 23:59 07:59 Intake Total 720 / 2320 600 / 2320 150 / 150 Output Total 300 / 800 500 / 800 0 / 0 Balance 420 / 1520 100 / 1520 150 / 150 Intake: Oral 720 / 1320 600 / 1320 150 / 150 Output: Urine 300 / 800 500 / 800 0 / 0 Other: Meal Lunch Percent of Meal Consumed 60% # Voids 1 Weight 71.3 kg Patient Weight 09/13/18 23:59 Weight 71.3 kg - Labs CBC & BMP: 09/13/18 01:29 09/13/18 01:29 Labs: Abnormal lab results RBC 2.31 M/mcL (4.19-5.50) L 09/13/18 01:29 Hgb 7.8 g/dL (12.9-16.9) L 09/13/18 01:29 Hct 23.8 % (37.5-50.1) L 09/13/18 01:29 MCV 103.0 fL (83.0-100.0) H 09/13/18 01:29 MCH 33.8 pg (28.0-33.3) H 09/13/18 01:29 Plt Count 139 K/mcL (140-400) L 09/11/18 11:20 MPV 8.5 fL (9.4-12.4) L 09/13/18 01:29 0.5 K/mcL (0.6-4.6) L 09/13/18 01:29 Potassium 3.4 mEq/L (3.5-5.1) L 09/13/18 01:29 Est GFR (Non-Af Amer) 59 (> 60) L 09/12/18 05:30 Glucose 153 mg/dL (70-105) H 09/13/18 01:29 Calcium 7.8 mg/dL (8.6-10.3) L 09/13/18 01:29 Iron 15 mcg/dL (65-175) L 09/11/18 12:27 % Saturation 6 % (20-55) L 09/11/18 12:27 184 mg/dL (203-362) L 09/11/18 12:27 AST 47 Units/L (13-39) H 09/11/18 12:27 5.7 g/dL (6.4-8.9) L 09/11/18 12:27 2.2 g/dL (2.4-3.5) L 09/11/18 12:27 Consult Discharge Plan - Plan Referrals: Christian Love DO [Primary Care Provider] - Prescriptions: Docusate Sodium [Colace] 100 mg PO BID 5 Days #10 capsule Acetaminophen [Non-Aspirin Extra Strength] 500 mg PO Q6H PRN 7 Days #28 tablet PRN Reason: Mild To Moderate Pain OxyCODONE Immed Rel [Roxicodone 5 MG] 5 mg PO Q6HR PRN 5 Days #20 tablet PRN Reason: Severe Pain
[2018-09-13] MEDS ORDERED: Ferumoxytol 510 MG in 0.9 % Sodium Chloride 100 ML IVPB ONE (08:17)
--- NOTE | 2018-09-13 11:08 | Internal Med Progress Note ---
Hospitalist Progress Note - Encounter Date of Encounter: 09/13/18 Time of Encounter: 11:06 - Subjective Interval History: Evaluated patient earlier today. He feels like he is getting better. Continues to have cough but not able to bring up any sputum. She does describe episode of fever last night. He did have low-grade in situ with MAXIMUM TEMPERATURE of 99.8 last night. Continues to have back pain at surgical site but improving each day. - Exam Vitals: Temp Pulse Resp BP Pulse Ox 98.8 F 107 17 130/74 94 09/13/18 10:09/13/18 10:09/13/18 10:09/13/18 10:09/13/18 10:09 Exam: General: Patient is alert, no acute distress, oriented x 3 Respiratory: Improved air entry at both bases Cardiovascular: Regular rate and rhythm. s1 and s2 normal No clicks, rubs, gallops, or murmurs. No pedal edema Abdomen: Abdomen is soft, nontender. Bowel sounds are present Musculoskeletal: Spontaneously moving all extremities Skin: warm, dry, intact. Neuro: Alert oriented x 3 normal cranial nerves, no focal deficits - Assessment and Plan (1) Sepsis Current Visit: Yes Status: Acute (2) Community acquired pneumonia Current Visit: Yes Status: Acute (3) Hypertension Current Visit: Yes Status: Acute (4) Status post lumbar spinal fusion Current Visit: Yes Status: Acute (5) Tachycardia Current Visit: Yes Status: Acute (6) CML (chronic myelocytic leukemia) Current Visit: No Status: Acute (7) Anemia Current Visit: Yes Status: Acute DVT Prophylaxis: On SCDs - Summary of Assessment and Plan Summary of Assessment and Plan: Sepsis from possible pneumonia: Chemically patient appears to be doing better. Frequency of episodes of fever improving. We will continue current antibiotics for another day and de-escalate tomorrow. Status post-posterior lumbar interbody fusion L3-L5: Continue physical therapy. Orthopedics/spine managing. Essential hypertension: Blood pressure is well controlled. Iron deficiency anemia: Patient remains anemic. Will transfuse intravenous iron. Continue to monitor hemoglobin levels. If hemoglobin levels continue to trend down, will transfuse PRBC. Moderate risk for complications. - Time Spent with Patient Total time spent is greater than 50% in coordination of care (as documented) at patient's floor/unit and/or counseling patient: Internal Medicine: Result - Labs CBC & Chem 7: 09/13/18 01:29 09/13/18 01:29 Labs: Short CBC 09/13/18 Range/Units 01:29 WBC 5.1 (4.3-11.1) K/mcL Hgb 7.8 L (12.9-16.9) g/dL Hct 23.8 L (37.5-50.1) % Plt Count 152 (140-400) K/mcL Neutrophils # 3.8 (1.6-8.9) K/mcL BMP 09/13/18 01:29 Sodium 138 Potassium 3.4 L Chloride 103 Carbon Dioxide 26 BUN 17 Creatinine 1.21 Glucose 153 H Calcium 7.8 L Consult Discharge Plan - Plan Referrals: Christian Love DO [Primary Care Provider] - Prescriptions: Docusate Sodium [Colace] 100 mg PO BID 5 Days #10 capsule Acetaminophen [Non-Aspirin Extra Strength] 500 mg PO Q6H PRN 7 Days #28 tablet PRN Reason: Mild To Moderate Pain OxyCODONE Immed Rel [Roxicodone 5 MG] 5 mg PO Q6HR PRN 5 Days #20 tablet PRN Reason: Severe Pain (1) Sepsis Qualifiers: Sepsis type: sepsis due to unspecified organism Qualified Code(s): A41.9 - Sepsis, unspecified organism (2) Community acquired pneumonia Qualifiers: Laterality: unspecified laterality Qualified Code(s): J18.9 - Pneumonia, unspecified organism (3) Hypertension Qualifiers: Hypertension type: essential hypertension Qualified Code(s): I10 - Essential (primary) hypertension (7) Anemia Qualifiers: Anemia type: unspecified type Qualified Code(s): D64.9 - Anemia, unspecified
[2018-09-13] MEDS: clonazePAM 0.5 MG TABLET PO SCH ×2 (11:11→20:40)
[2018-09-13] MEDS: Ascorbic Acid 500 MG TABLET PO SCH ×2 (11:11→20:40)
[2018-09-13] MEDS: Gabapentin 300 MG CAPSULE PO SCH ×3 (11:11→20:38)
[2018-09-13] MEDS: (Brexpiprazole [Rexulti] 2 MG) PO SCH (11:13)
[2018-09-13] MEDS: DASATINIB PO SCH (11:13)
--- NOTE | 2018-09-13 11:41 | Orthopedics Progress Note ---
Date of Encounter: 09/13/18 Time of Encounter: 11:38 Subjective Principal diagnosis: s/p PLIF Interval history: Doing better. Continues to have cough but without purulence. Does not feel ready to go home today. Vitals reviewed Dressing is clean dry and intact. Neurovascularly intact with regard to bilateral lower extremities. Fires all upper and lower extremity motor groups. POD#3 Posterior lumbar interbody fusion L3-L5 Continue to mobilize with therapy Continue analgesics Continue antibiotics per hospitalist - appreciate medical management for pneum onia Objective Vital signs: Vital Signs Temp Pulse Resp BP Pulse Ox 09/13/18 10:09 98.8 F 107 17 130/74 94 09/13/18 05:35 99.0 F 95 18 104/70 95 09/13/18 03:40 98.3 F 89 18 122/56 96 09/12/18 23:58 99.5 F 119 20 129/64 93 09/12/18 19:21 99.8 F H 118 18 154/80 95 09/12/18 17:21 99.6 F 101 16 121/66 96 09/12/18 14:08 99.3 F 104 16 107/68 96 Intake and Output 09/12/18 09/13/18 09/13/18 23:59 07:59 15:59 Intake Total 600 / 2320 150 / 390 240 / 390 Output Total 500 / 800 0 / 0 Balance 100 / 1520 150 / 390 240 / 390 Intake: Oral 600 / 1320 150 / 390 240 / 390 Output: Urine 500 / 800 0 / 0 Other: Meal Breakfast Percent of Meal Consumed 100% # Voids 1 Weight 71.3 kg Patient Weight 09/13/18 23:59 Weight 71.3 kg - Labs CBC & BMP: 09/13/18 01:29 09/13/18 01:29 Labs: Abnormal lab results RBC 2.31 M/mcL (4.19-5.50) L 09/13/18 01:29 Hgb 7.8 g/dL (12.9-16.9) L 09/13/18 01:29 Hct 23.8 % (37.5-50.1) L 09/13/18 01:29 MCV 103.0 fL (83.0-100.0) H 09/13/18 01:29 MCH 33.8 pg (28.0-33.3) H 06/29/19 01:29 Plt Count 139 K/mcL (140-400) L 09/11/18 11:20 MPV 8.5 fL (9.4-12.4) L 09/13/18 01:29 0.5 K/mcL (0.6-4.6) L 09/13/18 01:29 Potassium 3.4 mEq/L (3.5-5.1) L 09/13/18 01:29 Est GFR (Non-Af Amer) 59 (> 60) L 09/12/18 05:30 Glucose 153 mg/dL (70-105) H 09/13/18 01:29 Calcium 7.8 mg/dL (8.6-10.3) L 09/13/18 01:29 Iron 15 mcg/dL (65-175) L 09/11/18 12:27 % Saturation 6 % (20-55) L 09/11/18 12:27 184 mg/dL (203-362) L 09/11/18 12:27 AST 47 Units/L (13-39) H 09/11/18 12:27 5.7 g/dL (6.4-8.9) L 09/11/18 12:27 2.2 g/dL (2.4-3.5) L 09/11/18 12:27 Consult Discharge Plan - Plan Referrals: Christian Love DO [Primary Care Provider] - Prescriptions: Docusate Sodium [Colace] 100 mg PO BID 5 Days #10 capsule Acetaminophen [Non-Aspirin Extra Strength] 500 mg PO Q6H PRN 7 Days #28 tablet PRN Reason: Mild To Moderate Pain OxyCODONE Immed Rel [Roxicodone 5 MG] 5 mg PO Q6HR PRN 5 Days #20 tablet PRN Reason: Severe Pain
[2018-09-13 13:18] LABS: Hematocrit 28.2 % (37.5-50.1); Hemoglobin 9.1 g/dL (12.9-16.9)
[2018-09-13] MEDS: Azithromycin 500 MG in D5% in Water 250 ML IVPB SCH (13:29)
[2018-09-13] MEDS: cefTRIAXone 2,000 MG in 0.9 % Sodium Chloride Mini Bag 100 ML IVPB SCH (14:46)
[2018-09-14] MEDS: *HR* HYDROcodone/Acet 5/325 mg TABLET PO PRN ×3 (00:10→15:20)
[2018-09-14 02:08] LABS: Basophils % 0.6 %; Eosinophils # 0.3 K/mcL (0.0-0.6); Eosinophils % 5.8 %; Hematocrit 24.9 % (37.5-50.1); Hemoglobin 7.9 g/dL (12.9-16.9); Immature Granulocytes % 1.3 % (0-4); Lymphocytes # 0.6 K/mcL (0.6-4.6); Lymphocytes % 10.6 %; Mean Corpuscular HGB Conc 31.7 g/dL (31.6-35.5); Mean Corpuscular Hemoglobin 32.8 pg (28.0-33.3); Mean Corpuscular Volume 103.3 fL (83.0-100.0); Mean Platelet Volume 8.6 fL (9.4-12.4); Monocytes # 0.5 K/mcL (0.0-1.3); Monocytes % 8.8 %; Neutrophils # 3.9 K/mcL (1.6-8.9); Nucleated Red Blood Cells 0.4 /100 WBC (0); Platelet Count 201 K/mcL (140-400); Red Blood Count 2.41 M/mcL (4.19-5.50); Red Cell Distribution Width 13.4 % (11.5-14.5); Segmented Neutrophils % 72.9 %; White Blood Count 5.4 K/mcL (4.3-11.1)
[2018-09-14 02:27] LABS: BUN/Creatinine Ratio 15 (6-26); Blood Urea Nitrogen 18 mg/dL (6-20); Calcium 7.9 mg/dL (8.6-10.3); Carbon Dioxide 26 mEq/L (23-29); Chloride 105 mEq/L (98-107); Glucose 133 mg/dL (70-105); Osmolality,Calculated 292 (280-300); Potassium 3.7 mEq/L (3.5-5.1); Sodium 139 mEq/L (136-145); eGFR For African Americans > 60 (> 60); eGFR For Non-African Americans > 60 (> 60)
[2018-09-14] MEDS: Ascorbic Acid 500 MG TABLET PO SCH (07:49)
[2018-09-14] MEDS: Gabapentin 300 MG CAPSULE PO SCH ×2 (07:50→15:21)
[2018-09-14] MEDS: clonazePAM 0.5 MG TABLET PO SCH (07:50)
--- NOTE | 2018-09-14 10:26 | Internal Med Progress Note ---
Hospitalist Progress Note - Encounter Date of Encounter: 09/14/18 Time of Encounter: 10:22 - Subjective Interval History: Patient doing better today. Continues to have some cough. No nausea or vomiting. No chest pain or palpitations. Continues to be able to work with physical therapy. - Exam Vitals: Temp Pulse Resp BP Pulse Ox 99.2 F 102 18 110/69 93 09/14/18 06:46 09/14/18 06:46 09/14/18 06:46 09/14/18 06:46 09/14/18 06:46 Exam: General: Patient is alert, no acute distress, oriented x 3 Respiratory: Improved air entry at both bases Normal breath sounds. No wheezing or crackles. Cardiovascular: Regular rate and rhythm. s1 and s2 normal No clicks, rubs, gallops, or murmurs. No pedal edema Abdomen: Abdomen is soft, nontender. Bowel sounds are present Spine: Spinal brace in place Skin: warm, dry, intact. Neuro: Alert oriented x 3 normal cranial nerves, no focal deficits - Assessment and Plan (1) Sepsis Current Visit: Yes Status: Acute (2) Community acquired pneumonia Current Visit: Yes Status: Acute (3) Hypertension Current Visit: Yes Status: Acute (4) Status post lumbar spinal fusion Current Visit: Yes Status: Acute (5) Tachycardia Current Visit: Yes Status: Acute (6) CML (chronic myelocytic leukemia) Current Visit: No Status: Acute (7) Anemia Current Visit: Yes Status: Acute (8) Acute cystitis Current Visit: Yes Status: Acute DVT Prophylaxis: On SCDs - Summary of Assessment and Plan Summary of Assessment and Plan: Sepsis from possible pneumonia and UTI: Patient continues to improve. Will transition to oral antibiotics. Okay to discharge from medical standpoint. Recommend 7 days of antibiotic therapy to complete treatment for pneumonia and UTI. Status post-posterior lumbar interbody fusion L3-L5: Continue therapy. Spinal brace in place Essential hypertension: Blood pressure remains well controlled. Iron deficiency anemia: Chronic anemia. Patient being worked up as outpatient. Does have underlying CML. Follow up with oncology as outpatient. Patient scheduled for endoscopy as outpatient. Recommend to keep appointment. Will check an H&H prior to discharge. Low risk for complications. - Time Spent with Patient Total time spent is greater than 50% in coordination of care (as documented) at patient's floor/unit and/or counseling patient: Internal Medicine: Result - Labs CBC & Chem 7: 09/14/18 01:41 09/14/18 01:41 Labs: Short CBC 09/13/18 09/14/18 Range/Units 12:57 01:41 WBC 5.4 (4.3-11.1) K/mcL Hgb 9.1 L 7.9 L (12.9-16.9) g/dL Hct 28.2 L 24.9 L (37.5-50.1) % Plt Count 201 (140-400) K/mcL Neutrophils # 3.9 (1.6-8.9) K/mcL BMP 09/14/18 01:41 Sodium 139 Potassium 3.7 Chloride 105 Carbon Dioxide 26 BUN 18 Creatinine 1.17 Glucose 133 H Calcium 7.9 L Consult Discharge Plan - Plan Referrals: Christian Love DO [Primary Care Provider] - Prescriptions: Docusate Sodium [Colace] 100 mg PO BID 5 Days #10 capsule Gabapentin [Neurontin] 300 mg PO TID #90 capsule Acetaminophen [Non-Aspirin Extra Strength] 500 mg PO Q6H PRN 7 Days #28 tablet PRN Reason: Mild To Moderate Pain Cefdinir [Omnicef] 300 mg PO BID #8 capsule OxyCODONE Immed Rel [Roxicodone 5 MG] 5 mg PO Q6HR PRN 5 Days #20 tablet PRN Reason: Severe Pain Azithromycin [Zithromax] 500 mg PO Q24H #4 tablet (1) Sepsis Qualifiers: Sepsis type: sepsis due to unspecified organism Qualified Code(s): A41.9 - Sepsis, unspecified organism (2) Community acquired pneumonia Qualifiers: Laterality: unspecified laterality Qualified Code(s): J18.9 - Pneumonia, unspecified organism (3) Hypertension Qualifiers: Hypertension type: essential hypertension Qualified Code(s): I10 - Essential (primary) hypertension (7) Anemia Qualifiers: Anemia type: unspecified type Qualified Code(s): D64.9 - Anemia, unspecified (8) Acute cystitis Qualifiers: Hematuria presence: without hematuria Qualified Code(s): N30.00 - Acute cystitis without hematuria
--- NOTE | 2018-09-14 10:42 | Orthopedics Progress Note ---
Date of Encounter: 09/14/18 Time of Encounter: 10:41 Subjective Principal diagnosis: s/p PLIF Interval history: Doing better with no overnight events. Continues to have cough but without purulence. Vitals reviewed Dressing is clean dry and intact. Neurovascularly intact with regard to bilateral lower extremities. Fires all upper and lower extremity motor groups. POD#4 Posterior lumbar interbody fusion L3-L5 Continue to mobilize with therapy Continue analgesics Continue antibiotics per hospitalist - appreciate medical management for pneumonia Likely d/c today Objective Vital signs: Vital Signs Temp Pulse Resp BP Pulse Ox 09/14/18 06:46 99.2 F 102 18 110/69 93 09/14/18 04:23 99.1 F 107 18 109/61 93 09/14/18 01:10 98.6 F 09/13/18 23:10 99.6 F 112 18 114/66 94 09/13/18 20:50 92 09/13/18 18:47 98.5 F 118 18 127/75 92 Intake and Output 09/13/18 09/14/18 09/14/18 23:59 07:59 15:59 Intake Total 0 / 857 150 / 630 480 / 630 Output Total 0 / 0 Balance 0 / 857 150 / 630 480 / 630 Intake: Oral 0 / 390 150 / 630 480 / 630 Output: Urine 0 / 0 Other: Meal Breakfast Percent of Meal Consumed 100% # Voids 1 1 Weight 71.8 kg Patient Weight 09/14/18 23:59 Weight 71.8 kg - Labs CBC & BMP: 09/14/18 01:41 09/14/18 01:41 Labs: Abnormal lab results RBC 2.41 M/mcL (4.19-5.50) L 09/14/18 01:41 Hgb 7.9 g/dL (12.9-16.9) L 09/14/18 01:41 Hct 24.9 % (37.5-50.1) L 09/14/18 01:41 MCV 103.3 fL (83.0-100.0) H 09/14/18 01:41 MCH 33.8 pg (28.0-33.3) H 09/13/18 01:29 Plt Count 139 K/mcL (140-400) L 09/11/18 11:20 MPV 8.6 fL (9.4-12.4) L 09/14/18 01:41 0.5 K/mcL (0.6-4.6) L 09/13/18 01:29 Nucleated RBCs/100 WBC 0.4 /100 WBC (0) H 09/14/18 01:41 Potassium 3.4 mEq/L (3.5-5.1) L 09/13/18 01:29 Est GFR (Non-Af Amer) 59 (> 60) L 09/12/18 05:30 Glucose 133 mg/dL (70-105) H 09/14/18 01:41 Calcium 7.9 mg/dL (8.6-10.3) L 09/14/18 01:41 Iron 15 mcg/dL (65-175) L 09/11/18 12:27 % Saturation 6 % (20-55) L 09/11/18 12:27 184 mg/dL (203-362) L 09/11/18 12:27 AST 47 Units/L (13-39) H 09/11/18 12:27 5.7 g/dL (6.4-8.9) L 09/11/18 12:27 2.2 g/dL (2.4-3.5) L 09/11/18 12:27 Consult Discharge Plan - Plan Referrals: Christian Love DO [Primary Care Provider] - Prescriptions: Docusate Sodium [Colace] 100 mg PO BID 5 Days #10 capsule Gabapentin [Neurontin] 300 mg PO TID #90 capsule Acetaminophen [Non-Aspirin Extra Strength] 500 mg PO Q6H PRN 7 Days #28 tablet PRN Reason: Mild To Moderate Pain Cefdinir [Omnicef] 300 mg PO BID #8 capsule OxyCODONE Immed Rel [Roxicodone 5 MG] 5 mg PO Q6HR PRN 5 Days #20 tablet PRN Reason: Severe Pain Azithromycin [Zithromax] 500 mg PO Q24H #4 tablet
[2018-09-14 10:52] LABS: Hematocrit 26.3 % (37.5-50.1); Hemoglobin 8.4 g/dL (12.9-16.9)
[2018-09-14] MEDS ORDERED: Azithromycin 250 MG TABLET PO SCH (14:00)
[2018-09-14 14:22] VITALS: BP 129/70
--- NOTE | 2018-09-15 09:07 | Discharge Summary ---
Orders not resulted at time of discharge: Pending orders 09/11/18 12:19 Culture,Blood [BC] Stat Date of Encounter: 09/14/18 Time of Encounter: 11:00 - Discharge Diagnosis (1) Spondylisthesis Priority: Primary Status: Chronic Qualifiers: Spinal region: unspecified Qualified Code(s): M43.10 - Spondylolisthesis, site unspecified (2) Lumbar stenosis Priority: Primary Status: Chronic Qualifiers: Neurogenic claudication status: unspecified Qualified Code(s): M48.061 - Spinal stenosis, lumbar region without neurogenic claudication (3) Lumbar radiculopathy Priority: Primary Status: Chronic (4) Status post lumbar spinal fusion Priority: Primary Status: Acute (5) Fever Priority: Secondary Status: Resolved Qualifiers: Fever type: unspecified Qualified Code(s): R50.9 - Fever, unspecified (6) Cough Priority: Secondary Status: Acute (7) Anemia Priority: Secondary Status: Acute Qualifiers: Anemia type: unspecified type Qualified Code(s): D64.9 - Anemia, unspecified (8) Community acquired pneumonia Priority: Secondary Status: Acute Qualifiers: Laterality: unspecified laterality Qualified Code(s): J18.9 - Pneumonia, unspecified organism (9) Acute cystitis Priority: Secondary Status: Acute Qualifiers: Hematuria presence: without hematuria Qualified Code(s): N30.00 - Acute cystitis without hematuria (10) CML (chronic myelocytic leukemia) Priority: Secondary Status: Chronic - Hospital Course Hospital course: Mr. Coy is a 58 year old male s/p Posterior lumbar interbody fusion L3-L5 [Spondylolisthesis, lumbar stenosis, lumbar radiculopathy] 09/10/[address] Lorenzana. The patient developed cough POD#0 with development of abnormal vital signs on POD#1. Concern for pneumonia. Patient admits he presented for surgery with worsening cough. Hospitalist team consulted for assistance with management. Their input was greatly appreciated. Patient diagnosed with community acquired pneumonia. Patient went on to develop acute cystitis with UA revealing E Coli. He was also diagnosed with anemia and Iron with Vitamin C was initiated. Patient was discharged home on antibiotic therapy. He is to keep follow up with his oncologist and PCP as scheduled. Progressed from intravenous analgesic needs to oral analgesic needs only. Remained neurovascularly intact and mobilized satisfactorily. All intraoperative and/or postoperative radiographic studies were satisfactory. Patient course and disposition discussed with Dr. Lorenzana. Patient is discharged with plan for rehabilitation and follow-up in 2 weeks post discharge on analgesic medication and patient's home medications Patient seen by Dr. Ray ONLY on day of discharge. - Time Spent with Patient Total time spent providing and/or coordinating discharge services: - Discharge Medications Prescriptions: New Docusate Sodium [Colace] 100 mg PO BID 5 Days #10 capsule Acetaminophen [Non-Aspirin Extra Strength] 500 mg PO Q6H PRN 7 Days #28 tablet PRN Reason: Mild To Moderate Pain OxyCODONE Immed Rel [Roxicodone 5 MG] 5 mg PO Q6HR PRN 5 Days #20 tablet PRN Reason: Severe Pain Azithromycin [Zithromax] 500 mg PO Q24H #4 tablet Gabapentin [Neurontin] 300 mg PO TID #90 capsule Cefdinir [Omnicef] 300 mg PO BID #8 capsule Cyclobenzaprine [Flexeril] 10 mg PO TID PRN #30 tablet PRN Reason: Spasms Ferrous Sulfate 325 mg PO BIDWM #60 tablet Continued DULoxetine [Cymbalta] 60 mg PO DAILY Brexpiprazole [Rexulti] 2 mg PO DAILY Dasatinib [Sprycel] 80 mg PO DAILY #90 tablet Oxycodone HCl/Acetaminophen [Percocet 7.5-325 mg Tablet] 1 tab PO Q6H PRN PRN Reason: Pain Meloxicam 15 mg PO QAM Lisinopril-HCTZ 20-12.5 [Prinzide 20-12.5] 1 tab PO QAM clonazePAM [Clonazepam] 0.5 mg PO BID Loratadine/Pseudoephedrine [Cvs Allergy Relief-D12 Tablet] 1 tab PO DAILY PRN PRN Reason: Congestion Home Medications: DULoxetine [Cymbalta] 60 mg PO DAILY 05/01/17 [History] Brexpiprazole [Rexulti] 2 mg PO DAILY 12/19/17 [History] Dasatinib [Sprycel] 80 mg PO DAILY #90 tablet 06/26/18 [Rx] Lisinopril-HCTZ 20-12.5 [Prinzide 20-12.5] 1 tab PO QAM 09/10/18 [History] Loratadine/Pseudoephedrine [Cvs Allergy Relief-D12 Tablet] 1 tab PO DAILY PRN 09/10/18 [History] Meloxicam 15 mg PO QAM 09/10/18 [History] Oxycodone HCl/Acetaminophen [Percocet 7.5-325 mg Tablet] 1 tab PO Q6H PRN 09/10/18 [History] clonazePAM [Clonazepam] 0.5 mg PO BID 09/10/18 [History] Acetaminophen [Non-Aspirin Extra Strength] 500 mg PO Q6H PRN 7 Days #28 tablet 09/11/18 [Rx] Docusate Sodium [Colace] 100 mg PO BID 5 Days #10 capsule 09/11/18 [Rx] OxyCODONE Immed Rel [Roxicodone 5 MG] 5 mg PO Q6HR PRN 5 Days #20 tablet 09/11/18 [Rx] Azithromycin [Zithromax] 500 mg PO Q24H #4 tablet 09/14/18 [Rx] Cefdinir [Omnicef] 300 mg PO BID #8 capsule 09/14/18 [Rx] Cyclobenzaprine [Flexeril] 10 mg PO TID PRN #30 tablet 09/14/18 [Rx] Ferrous Sulfate 325 mg PO BIDWM #60 tablet 09/14/18 [Rx] Gabapentin [Neurontin] 300 mg PO TID #90 capsule 09/14/18 [Rx] Allergies/Adverse Reactions: Allergy/AdvReac Type Severity Reaction Status Date / Time Penicillins [PCN] AdvReac Rash Verified 09/10/18 07:24 Date of admission: 09/10/18 13:46 Primary care physician: Christian Love DO Consults: 09/10/18 13:57 Consult to Physical Therapy [CONS] Routine Comment: Evaluate, develop and implement POC Reason for Consult: Postoperative rehabilitation Does patient have active BEDREST order?: No Is patient medically & hemodynamically stable?: Yes Patient assessed for mobility or mobilized this visit?: No Consult to Spine Navigator [CONS] [CONS] Routine 09/11/18 11:56 Consult to Hospitalist [CONS] Routine Consulting Provider: Hospitalist Randall Reason for Consult: febrile, tachycardia, poss pneumonia Time Notified: 11:56 Call Completed: Yes Discharging clinician: Dorian Ray Anticipated date of discharge: 09/14/18 - VTE Documentation of Mechanical Device: Graduated compression elastic hosiery Labs on day of discharge: Labs from last 24 hours 09/14/18 10:35 Hgb 8.4 L Hct 26.3 L Preliminary micro results at discharge 09/11/18 12:19 Blood Culture - Preliminary Peripheral Venipuncture Culture is incubating and being continuously monitored for growth. Final report to follow. 09/11/18 12:27 Blood Culture - Preliminary Peripheral Venipuncture Culture is incubating and being continuously monitored for growth. Final report to follow. - Impressions ITS Impressions Fluoroscopy 09/10/18 08:55 IMPRESSION: Intraprocedural fluoroscopic spot images as above. See separate procedure report for more information. Postoperative lateral radiograph of the lumbar spine demonstrates posterior fusion changes from L3-L5, with laminectomies. D/ / 09/10/2018 12:51:57 Darryl Gunn MD / kerry Interpreting Provider: Darryl Gunn MD Lumbar Spine X-Ray 09/10/18 08:55 IMPRESSION: Intraprocedural fluoroscopic spot images as above. See separate procedure report for more information. Postoperative lateral radiograph of the lumbar spine demonstrates posterior fusion changes from L3-L5, with laminectomies. D/ / 09/10/2018 12:51:57 Darryl Gunn MD / kerry Interpreting Provider: Darryl Gunn MD Lumbar Spine X-Ray 09/10/18 08:55 IMPRESSION: Intraprocedural fluoroscopic spot images as above. See separate procedure report for more information. Postoperative lateral radiograph of the lumbar spine demonstrates posterior fusion changes from L3-L5, with laminectomies. D/ / 09/10/2018 12:51:57 Darryl Gunn MD / kerry Interpreting Provider: Darryl Gunn MD Chest X-Ray 09/11/18 08:26 IMPRESSION: Bibasilar atelectasis or infiltrate. D/ / Zina Busch MD / Zina Busch MD Interpreting Provider: Zina Busch MD Lumbar Spine X-Ray 09/12/18 10:00 IMPRESSION: Intact postsurgical hardware following posterior spinal fusion and discectomy as well as laminectomy. The hardware appears intact. No fracture or acute hardware complication. D/ / Galen Powers MD / Galen Powers MD Interpreting Provider: Galen Powers MD - Patient Status Disposition: Home, Self-Care Condition: Fair Functional capacity at discharge: uses cane/walker Overall status at discharge: patient is progressing back to baseline - Discharge Instructions Instructions: Sepsis (DC), Pneumonia (DC) Follow Up With: Estelle Cutler PAC [Physician Novelty Printing Machine Operator] - 09/23/18 10:45 am Deejay Lorenzana Jr, MD [Partnered Physician] - 12/19/18 11:30 am Christian Love DO [Primary Care Provider] - (Web request submitted 09/14/18) Additional Instructions: Discharge Instructions: Lumbar Please call [facility] ([phone]), your Primary Care Physician, or report to the ER if you have any of the following symptoms: Fever greater that 101.5, increased pain/redness/drainage/odor for your incision site or any other concerning symptoms. ACTIVITY * May Shower * No Tub Baths * No lifting greater than 10 pounds * No Smoking * No Swimming * No off Ground Activities (Running, Climbing, Ladders, Horseback Riding) * No Driving * Wear Back Brace when up walking if lumbar fusion done * Incentive Spirometer 10 times an hour MEDICATIONS: Upon discharge resume your home medications. Take all the medications as prescribed. Take a stool softener if taking narcotic pain medications. Stool softeners are only effective if you drink enough fluids. Drink 6-8 glass of water or fluids a day, unless this is not allowed for another health problem. Despite using stool softeners, if you haven't had a bowel movement in 3 days, please switch to a gentle laxative. Gentle laxatives are sold over the counter. You should have a bowel movement within 24 hours, if not call the office. You will be discharged from the hospital with a prescription for pain medication. You are encouraged to decrease the use of narcotic pain medication as tolerated. Should you require a refill, please call the office. It is best to call 48-72 hours in advance of needing a prescription refill so you don't run out of medication. WOUND CARE: Remove Dressing Tomorrow. Leave incision open to air. Pat dry when you get out of the shower. FOLLOW-UP: Please follow up with your surgeon in the orthopedic clinic in 2 weeks from the day of surgery. References: [employer] (www.[email or web address]) - Diet and Activity Activity: as per physical therapy Diet: advance to your usual diet
== END 2018-09-14 18:30 | disposition home or self-care (01) | DRG 453 ==
LOC: SAMDAY 06:12 → 3NENU 13:46
PROVIDERS: ADMIT Orthopaedic Surgery Orthopaedic Surgery of the Spine; ATTEND Orthopaedic Surgery Orthopaedic Surgery of the Spine